=== PATIENT | female | born 1965 | race Caucasian/White ===

== ENCOUNTER 2019-11-04 08:02 | Day surgery (SDC) | payer OTHER ==
[2019-11-04 08:10] LABS: Urine Appearance CLOUDY; Urine Bilirubin NEGATIVE (NEG); Urine Blood NEGATIVE (NEG); Urine Color YELLOW; Urine Glucose NEGATIVE (NEG); Urine Protein NEGATIVE (NEG); Urine Specific Gravity >=1.030 (1.005-1.030); Urine Urobilinogen 0.2 mg/dL (0.2-1.0)
[2019-11-04 08:10] LABS: Absolute Lymphocytes (CBC) 2.2 K/uL (0.7-4.9); Hematocrit 35.7 % (36.0-45.0); Lymphocytes % 25.9 % (15.3-44.8); MPV 8.3 fL (7.6-11.3); RBC Red Blood Cell Count 3.86 M/uL (3.86-4.86)
[2019-11-04] MEDS ORDERED: BACITRACIN 50000 UNIT VIAL ONE (08:20)
[2019-11-04] MEDS ORDERED: CEFAZOLIN SODIUM 1 GM/VIAL ONE (08:20)
[2019-11-04] MEDS ORDERED: LIDOCAINE 1% W/EPI 1:100,000 MDV 20 ML VIAL ONE (08:20)
[2019-11-04] MEDS ORDERED: GENTAMICIN SULF 80 MG/2ML INJ ONE (08:20)
[2019-11-04] MEDS ORDERED: Mastisol Adhesive Liq ONE (08:20)
[2019-11-04] MEDS ORDERED: NS 0.9% VIAL 40 ML ONE (08:20)
[2019-11-04] MEDS ORDERED: Ringers Lactate 1,000 ML IV ONE ×3 (08:20→08:37)
[2019-11-04] MEDS ORDERED: CEFAZOLIN/SWI 1gm 1 GM/10 ML SYR ONE (08:37)
--- NOTE | 2019-11-04 08:54 | RAD REPORT ---
EXAM DESCRIPTION: RAD - Chest Pa And Lat (2 Views) - 11/04/2019 8:02 am CLINICAL HISTORY: pre op Chest pain. COMPARISON: No comparisons FINDINGS: The lungs are clear. The heart is normal in size. No displaced fractures. IMPRESSION: No acute or concerning finding suspected.
[2019-11-04 09:01] LABS: Urine Microscopic Reflex ORDER UMIC
[2019-11-04 09:08] LABS: Urine RBC NONE SEEN /HPF (NONE SEEN)
[2019-11-04 09:09] LABS: Urine Bacteria >50 /HPF (<20); Urine Culture Reflex Order REFLEXED; Urine Mucus HEAVY /HPF (NONE SEEN)
[2019-11-04] MEDS ORDERED: SCOPOLAMINE HYDROBROMIDE PATCH TD ONE (09:16)
[2019-11-04] MEDS ORDERED: KETOROLAC 30 MG/ML INJ ONE ×2 (09:32→13:50)
[2019-11-04] MEDS ORDERED: dexAMETHasone 10 MG/ML VIAL ONE (09:32)
[2019-11-04] MEDS ORDERED: FENTANYL CITR 250 MCG/5 ML ONE (09:32)
[2019-11-04] MEDS ORDERED: propofoL 200 MG/20 ML VIAL IV ONE (09:32)
[2019-11-04] MEDS ORDERED: ROCURONIUM 50 MG/5 ML VIAL IV ONE (09:32)
[2019-11-04] MEDS ORDERED: MIDAZOLAM HCL 2 MG/2 ML INJ ONE (09:32)
[2019-11-04] MEDS ORDERED: LIDOCAINE 2% MPF 5 ML VIAL ONE (09:32)
[2019-11-04] MEDS ORDERED: ONDANSETRON 4 MG/2 ML VIAL ONE ×3 (09:33→14:35)
[2019-11-04] MEDS ORDERED: NS 0.9% VIAL 20 ML ONE (09:33)
[2019-11-04] MEDS ORDERED: VECURONIUM 10 MG/VIAL IV ONE ×2 (09:33→12:09)
[2019-11-04] MEDS ORDERED: LANO/MINERAL OIL/PETRO 3.5 GM ONE (09:38)
[2019-11-04] MEDS ORDERED: NEOSTIGMINE 1 MG/ML -5 ML ONE (13:50)
[2019-11-04] MEDS ORDERED: GLYCOPYRROLATE 0.2 MG/ML SYR ONE (13:50)
[2019-11-04] MEDS: HYDROMORPHONE HCL 1 MG/ML INJ ONE ×4 (14:21→14:36)
[2019-11-04 15:10] VITALS: TEMP 97.6
[2019-11-04] MEDS ORDERED: CODEINE 30MG/APAP 300MG TAB ONE (15:29)
[2019-11-04 15:57] VITALS: BP 110/56; O2SAT 98
--- NOTE | 2019-11-07 09:21 | OP ---
Surgeon: Praveen Tovar MD Wooden Tank Erector: Kaz. Preoperative Diagnosis: Breast descent, status post implants. Postoperative Diagnosis: Breast descent, status post implants. Procedure Performed: Explantation and lift. Anesthesia: General. Operative Note: After satisfactory induction of general anesthesia, the chest was prepped with DuraPrep and dry sterile drapes applied in the usual manner. A 45 mm template was used to outline the right and left areolas. Then, the transverse curvilinear incision was made. Intervening skin was de- epithelialized with dermabrader and EpiCut and a transverse incision was made. Flap was elevated and thinned to 1.2 cm and elevated towards the clavicle, sternum, and anterior axillary line. Both sides were done simultaneously. Then, the inferior incision was made, and at the 6 o'clock position, incision was made over the implants. Implants were removed from cephalad position. They were 250 cc and they weighed 254 g each. The patient then had conization performed after the inferior incision was made, and excess breast tissue was excised. On the right breast 46 g and the left breast 56 g, and then 2-0 PDS was used to creat the cone. Then, at the right breast 12 o'clock, 1:30, and 3 o'clock position, straps were elevated, and they were passed retropectoral and then prepectoral back to base of the cone and retropectoral prepectoral patch themselves at the base of the cone with 2-0 PDS suture. This was done from 12 o'clock and 1;30 straps. The 3 o'clock strap was sewn over the sternum at 3 o'clock position with 2-0 Ethibond. The left side was done in a mirror image manner and the patient was sat up. Dog ears medially and laterally were marked out. The patient was placed supine. Dog ears were excised. Wound was irrigated with antibiotic solution and then closed in layers with 3-0 Vicryl subcuticular 3-0 PDS running from lateral to medial and medial to lateral, tied in the vertical meridian of the breast. A 10 TOSHIA had been brought out and sewn in place with 2-0 silk. The left side was done identical and then the patient was sat up. Site for new nipple-areolar complex was marked out, tissue cored out with a 45 mm template, and then nipple areolar complex was delivered and sewn with interrupted 4-0 PDS followed by 4-0 PDS running subcuticular. Dressings consisted of tincture of benzoin, Steri-Strips, fluffs, and Caden wrap. The patient tolerated the procedure well and returned to Recovery. SLADE/MANUEL Voice ID: [id number] Report ID: [id number] YANNI
== END 2019-11-04 16:03 | disposition home or self-care (01) ==
LOC: OR 08:02
PROVIDERS: ATTEND Specialist
PROC: 0HPT0JZ Removal of Synthetic Substitute from Right Breast, Open Approach (ICD-10-PCS; 2019-11-04)
PROC: 0H0V0ZZ Alteration of Bilateral Breast, Open Approach (ICD-10-PCS; 2019-11-04)
PROC: 0HPU0JZ Removal of Synthetic Substitute from Left Breast, Open Approach (ICD-10-PCS; principal; 2019-11-04 09:00)
DX: N64.81 Ptosis of breast (principal); Z45.812 Encounter for adjustment or removal of left breast implant; Z45.811 Encounter for adjustment or removal of right breast implant
CPT/HCPCS: 93005; 85025; 87086; 36415; 88305; 71046; 19328; 19316; J2704; J1580; J2250; J3010; J1100; J1170 ×2; J2710; J0690 ×2; J7120 ×3; J2405 ×3; 81003; 81015; 87088

== ENCOUNTER 2019-11-18 14:52 | Inpatient (IN) | payer OTHER ==
[2019-11-18] MEDS ORDERED: CEFEPIME/SWI 2gm 2 GM/20 ML SYR IVP ONE (16:00)
[2019-11-18] MEDS ORDERED: VANCOMYCIN/NS 1 gm 1 GM/250 ML BAG IV ONE (16:00)
[2019-11-18 16:26] LABS: Absolute Lymphocytes (CBC) 2.4 K/uL (0.7-4.9); Basophils % 0.7 % (0-1.3); Hematocrit 30.2 % (36.0-45.0); Lymphocytes % 16.8 % (15.3-44.8); RBC Red Blood Cell Count 3.36 M/uL (3.86-4.86)
[2019-11-18 16:38] LABS: Protime INR 1.1
[2019-11-18 16:44] LABS: ALT/SGPT 25 U/L (12-78); AST/SGOT 16 U/L (15-37); Albumin 3.4 g/dL (3.4-5.0); Alkaline Phosphatase 131 U/L (45-117); BUN Blood Urea Nitrogen 11 mg/dL (7-18); Bicarbonate 29 mmol/L (21-32); Bilirubin Direct < 0.1 mg/dL (0-0.2); Bilirubin Total 0.2 mg/dL (0.2-1.0); Creatine Phosphokinase 35 U/L (26-192); Glucose Level 88 mg/dL (74-106); Potassium 3.6 mmol/L (3.5-5.1); Protein, Total 9.2 g/dL (6.4-8.2); Sodium Level 137 mmol/L (136-145)
--- NOTE | 2019-11-18 17:40 | RAD REPORT ---
EXAM DESCRIPTION: US - BREAST/AXILLA, COMPLETE - 11/18/2019 5:26 pm CLINICAL HISTORY: Breast pain and tenderness, recent implant removal and breast lift procedure COMPARISON: None FINDINGS: Bilateral breast sonographic evaluation performed of the retroareolar regions and all 4 qu adrants. Subcutaneous edema changes are present. In the 12 o'clock right breast 4 cm from the nipple a 3-4 jose timeter elliptical-shaped fluid collection is present. This is anechoic to minimally hypoechoic. No t hickened rim or rind. In the 3 o'clock right breast 5 cm from the nipple an 18 millimeter oval anecho ic to minimally hypoechoic focus is present. A similar 11 mm hypoechoic focus is present 6 o'clock ri ght breast. A thin crescent-shaped 3.7 centimeter anechoic collection is present in the 12 o'clock left breast. T he 3 o'clock left breast shows a 5-6 mm a amorphous hypoechoic collection. IMPRESSION: Multiple bilateral breast anechoic to minimally hypoechoic collections are present. Thes e are believed to be postoperative seroma is or benign reactive fluid collections secondary to the re cent surgery. No abscess or drainable fluid collection identifiable.
--- NOTE | 2019-11-18 17:48 | ER ---
Nurse's Notes [facility] Name: Vee Sierra Age: 53 yrs Sex: Female : 1965 Arrival Date: 11/18/2019 Time: 14:57 Bed 5 Private MD: Diagnosis: Cellulitis of chest wall;Unspecified open wound of left breast;Unspecified open wound of right breast Presentation: 11/17 15:04 Chief complaint: Patient states: Had breast implants removed with a breast lift 2 weeks ll1 ago. Having problems with the skin and nipple tissue since. Has been seeing Dr. Tovar for this. States they debrided skin on Friday. Breasts are swollen, warm to touch, painful. No fever at home. Coronavirus screen: Client denies travel out of the [place] in the last 14 days. At this time, the client does not indicate any symptoms associated with coronavirus-19. Ebola Screen: Patient denies travel to an Ebola-affected area in the 21 days before illness onset. Initial Sepsis Screen: Does the patient meet any 2 criteria? HR > 90 bpm. Risk Assessment: Do you want to hurt yourself or someone else? Patient reports no desire to harm self or others. Onset of symptoms was November 06, 2019. 15:04 Method Of Arrival: Ambulatory ll1 15:04 Acuity: MARGOT 3 ll1 19:42 Initial Sepsis Screen: Does the patient have a suspected source of infection? Yes: Skin rv breakdown/wound. 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 - Social history:: Smoking status: Patient denies any tobacco usage or history of. Screenin:11 Abuse screen: Denies threats or abuse. Denies injuries from another. Nutritional jr10 screening: No deficits noted. Tuberculosis screening: No symptoms or risk factors identified. Fall Risk IV access (20 points). Assessment: 16:11 General: Appears in no apparent distress. Behavior is calm, cooperative, appropriate jr10 for age. Pain: Complains of pain in right breast and left breast Pain does not radiate. Neuro: No deficits noted. Level of Consciousness is awake, alert, obeys commands, Oriented to Appropriate for age. Cardiovascular: No deficits noted. Denies chest pain, Patient's skin is warm and dry. Pulses are all present. Edema is absent. Rhythm is sinus rhythm. Respiratory: No deficits noted. Airway is patent Respiratory effort is even, unlabored, Respiratory pattern is regular, symmetrical, Breath sounds are clear bilaterally. Denies shortness of breath. GI: No deficits noted. No signs and/or symptoms were reported involving the gastrointestinal system. : No deficits noted. No signs and/or symptoms were reported regarding the genitourinary system. EENT: No deficits noted. No signs and/or symptoms were reported regarding the EENT system. Derm: Wound noted right nipple and left nipple Wound is vickey areolas raw in appearance with purulent d/c noted, no discharge noted from actual nipple; right nipple is pink in appearance; left nipple is pale in appearance; pt reports removal of vickey breast implants with a decrease in areola size 2 weeks ago; started on 2 rounds of oral abx and had wound debridement yesterday Reports increased pain. Musculoskeletal: No deficits noted. 18:00 Reassessment: Patient and/or family updated on plan of care and expected duration. Pain jr10 level reassessed. Patient is alert, oriented x 3, equal unlabored respirations, skin warm/dry/pink. 19:34 General: Appears comfortable, Behavior is calm, cooperative. Pain: Complains of pain in rv chest. 19:40 Neuro: Level of Consciousness is awake, alert, obeys commands, Oriented to person, rv place, time, situation. Respiratory: Airway is patent Respiratory effort is even, unlabored, Breath sounds are clear bilaterally. Vital Signs: 15:04 BP 124 / 71; Pulse 107; Resp 18; Temp 98.8; Pulse Ox 100% ; Pain 4/10; ll1 16:24 BP 113 / 77; Pulse 107; Resp 18; Pulse Ox 100% on R/A; jr10 17:45 BP 130 / 73; Pulse 104; Resp 20; Pulse Ox 100% on R/A; jr10 17:45 BP 125 / 81; Pulse 105; Resp 20; Pulse Ox 100% on R/A; jr10 19:00 BP 117 / 79; Pulse 105; Resp 17; Temp 98.4(O); Pulse Ox 100% ; rv ED Course: 14:57 Patient arrived in ED. mr 15:06 Triage completed. ll1 15:07 Arm band placed on Patient placed in an exam room, on a stretcher. ll1 15:09 Brain Roldan PA is PHCP. jr8 15:09 Tom Pa MD is Attending Physician. jr8 15:28 Natalie Sidhu, RN is Primary Nurse. jr10 16:11 Patient has correct armband on for positive identification. Placed in gown. Bed in low jr10 position. Call light in reach. Side rails up X2. supervisor of research on. Pulse ox on. NIBP on. 16:11 Inserted saline lock: 20 gauge in right forearm, using aseptic technique. IV is patent, jr10 is intact, with good blood return, Flushed. 16:23 No provider procedures requiring assistance completed. jr10 16:30 EKG done, by ED staff, reviewed by Brani DAUGHERTY. dh3 17:26 BREAST/AXILLA, COMPLETE In Process Unspecified. EDMS 17:47 Kevin Mendoza DO is Hospitalizing Provider. jr8 19:42 IV is patent, with fluids infusing freely, Patient admitted, IV remains in place. rv Administered Medications: 16:38 Drug: Cefepime 2 grams Route: IVPB; Rate: 200 ml/hr; Infused Over: 30 mins; Site: right jr10 forearm; 17:53 Follow up: Response: No adverse reaction; IV Status: Completed infusion jr10 17:54 Drug: vancoMYCIN 1 grams Route: IVPB; Infused Over: 2 hrs; Site: right forearm; jr10 19:42 Follow up: IV Status: Completed infusion; IV Intake: 250ml rv 18:08 Drug: morphine 4 mg Route: IVP; Site: right forearm; jr10 18:25 Follow up: Response: No adverse reaction jr10 18:08 Drug: Zofran (Ondansetron) 4 mg Route: IVP; Site: right forearm; jr10 18:25 Follow up: Response: No adverse reaction jr10 Intake: 19:42 IV: 250ml; Total: 250ml. rv Outcome: 17:48 Decision to Hospitalize by Provider. jr8 19:41 Admitted to Med/surg accompanied by tech, via wheelchair, room 204, with chart, Report rv called to BURT GOODWIN 19:41 Condition: good 19:41 Instructed on the need for admit. 19:43 Patient left the ED. rv Signatures: Dispatcher [employer] TITOPatricia FarrarBrain PA PA jr8 Jacqueline Cespedes 3 Brendon Guzman RN RN rv Criss Mendoza RN RN ll1 Natalie Sidhu RN RN jr10 Corrections: (The following items were deleted from the chart) 15:08 15:04 Chief complaint: Patient states: Had breast implants removed and had a breast ll1 lift 2 weeks ago. Having problems with the skin and nipple tissue since. Has been seeing Dr. Tovar for this. States they debrided skin on Friday. Breasts are swollen, warm to touch, painful. No fever at home. ll1
--- NOTE | 2019-11-18 17:48 | EDPHYS ---
Physician Documentation [facility] Name: Vee Sierra Age: 53 yrs Sex: Female : 1965 Arrival Date: 11/18/2019 Time: 14:57 Bed 5 Private MD: ED Physician Tom Pa HPI: 11/17 16:08 This 53 yrs old Female presents to ER via Ambulatory with complaints of Post jr8 surgical problem. 16:20 Patient stated that she had her implants taken out about 2 weeks ago and had a breast jr8 lift. Stated that she has had erythema and discharge around areolas since then. Was told to come to ED for further evaluation after a few days of out patient treatment and debridement without decrease in symptoms . Severity of symptoms: At their worst the symptoms were moderate in the emergency department the symptoms are unchanged. The patient has not experienced similar symptoms in the past. The patient has been recently seen by a physician:. 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 - Social history:: Smoking status: Patient denies any tobacco usage or history of. ROS: 16:20 Eyes: Negative for injury, pain, redness, and discharge, ENT: Negative for injury, jr8 pain, and discharge, Neck: Negative for injury, pain, and swelling, Cardiovascular: Negative for chest pain, palpitations, and edema, Respiratory: Negative for shortness of breath, cough, wheezing, and pleuritic chest pain, Abdomen/GI: Negative for abdominal pain, nausea, vomiting, diarrhea, and constipation, Back: Negative for injury and pain, MS/Extremity: Negative for injury and deformity, Neuro: Negative for headache, weakness, numbness, tingling, and seizure. 16:20 Skin: Positive for erythema, swelling, of the chest. Exam: 16:20 Eyes: Pupils equal round and reactive to light, extra-ocular motions intact. Lids and jr8 lashes normal. Conjunctiva and sclera are non-icteric and not injected. Cornea within normal limits. Periorbital areas with no swelling, redness, or edema. ENT: Nares patent. No nasal discharge, no septal abnormalities noted. Tympanic membranes are normal and external auditory canals are clear. Oropharynx with no redness, swelling, or masses, exudates, or evidence of obstruction, uvula midline. Mucous membranes moist. Neck: Trachea midline, no thyromegaly or masses palpated, and no cervical lymphadenopathy. Supple, full range of motion without nuchal rigidity, or vertebral point tenderness. No Meningismus. Cardiovascular: Tachycardia with a normal S1 and S2. No gallops, murmurs, or rubs. Normal PMI, no JVD. No pulse deficits. Respiratory: Lungs have equal breath sounds bilaterally, clear to auscultation and percussion. No rales, rhonchi or wheezes noted. No increased work of breathing, no retractions or nasal flaring. Abdomen/GI: Soft, non-tender, with normal bowel sounds. No distension or tympany. No guarding or rebound. No evidence of tenderness throughout. Back: No spinal tenderness. No costovertebral tenderness. Full range of motion. Skin: Warm, dry with normal turgor. Normal color with no rashes, no lesions, and no evidence of cellulitis. MS/ Extremity: Pulses equal, no cyanosis. Neurovascular intact. Full, normal range of motion. Neuro: Awake and alert, GCS 15, oriented to person, place, time, and situation. Cranial nerves II-XII grossly intact. Motor strength 5/5 in all extremities. Sensory grossly intact. Cerebellar exam normal. Normal gait. 16:20 Chest/axilla: Breasts: Patient has bilateral breast changes. Surgical incisions noted to inferior breasts without discharge or erythema. Patient has eschar with discharge noted bilaterally to the areolas. Both breasts are firm and tender to palpation . Vital Signs: 15:04 BP 124 / 71; Pulse 107; Resp 18; Temp 98.8; Pulse Ox 100% ; Pain 4/10; ll1 16:24 BP 113 / 77; Pulse 107; Resp 18; Pulse Ox 100% on R/A; jr10 17:45 BP 130 / 73; Pulse 104; Resp 20; Pulse Ox 100% on R/A; jr10 17:45 BP 125 / 81; Pulse 105; Resp 20; Pulse Ox 100% on R/A; jr10 19:00 BP 117 / 79; Pulse 105; Resp 17; Temp 98.4(O); Pulse Ox 100% ; rv MDM: 15:09 Patient medically screened. [facility] 17:13 Data reviewed: vital signs, nurses notes, lab test result(s), radiologic studies, [facility] ultrasound. Data interpreted: Pulse oximetry: on room air is 100 %. Interpretation: normal. Counseling: I had a detailed discussion with the patient and/or guardian regarding: the historical points, exam findings, and any diagnostic results supporting the discharge/admit diagnosis, lab results, radiology results, the need for further work-up and treatment in the hospital. ED course: Spoke with Dr. Tovar who will see patient. Most likely will go to surgery in the AM. 11/17 15:10 Order name: Sed Rate [facility] 11/17 15:10 Order name: C-Reactive Protein; Complete Time: 17:05 [facility] 11/17 15:10 Order name: Basic Metabolic Panel; Complete Time: 17:05 [facility] 11/17 15:10 Order name: Blood Culture Adult (2) [facility] 11/17 15:10 Order name: CBC with Diff; Complete Time: 17:05 [facility] 11/17 15:10 Order name: CPK; Complete Time: 17:05 [facility] 11/17 15:10 Order name: Lactate; Complete Time: 17:05 [facility] 11/17 15:10 Order name: LFT's; Complete Time: 17:05 [facility] 11/17 15:10 Order name: Procalcitonin; Complete Time: 17:12 [facility] 11/17 15:10 Order name: Protime (+inr); Complete Time: 17:05 [facility] 11/17 15:10 Order name: Ptt, Activated; Complete Time: 17:05 [facility] 11/17 15:11 Order name: Sedimentation Rate, Westergren; Complete Time: 17:05 [facility] 11/17 16:02 Order name: BREAST/AXILLA, COMPLETE; Complete Time: 17:46 [facility] 11/17 15:10 Order name: Cardiac monitoring; Complete Time: 16:11 [facility] 11/17 15:10 Order name: EKG - Nurse/Tech; Complete Time: 17:03 [facility] 11/17 15:10 Order name: IV Saline Lock - Large Bore; Complete Time: 16:11 [facility] 11/17 15:11 Order name: Labs collected and sent; Complete Time: 16:11 [facility] 11/17 15:11 Order name: O2 Per Protocol; Complete Time: 15:29 8 11/17 15:11 Order name: O2 Sat Monitoring; Complete Time: 15:29 11/17 18:31 Order name: CONS Physician Consult EDMS Administered Medications: 16:38 Drug: Cefepime 2 grams Route: IVPB; Rate: 200 ml/hr; Infused Over: 30 mins; Site: right jr10 forearm; 17:53 Follow up: Response: No adverse reaction; IV Status: Completed infusion jr10 17:54 Drug: vancoMYCIN 1 grams Route: IVPB; Infused Over: 2 hrs; Site: right forearm; jr10 19:42 Follow up: IV Status: Completed infusion; IV Intake: 250ml rv 18:08 Drug: morphine 4 mg Route: IVP; Site: right forearm; jr10 18:25 Follow up: Response: No adverse reaction jr10 18:08 Drug: Zofran (Ondansetron) 4 mg Route: IVP; Site: right forearm; jr10 18:25 Follow up: Response: No adverse reaction [facility] Disposition: 11/18 14:26 Co-signature as Attending Physician, Tom Pa MD I agree with the assessment and kdr plan of care. Disposition: 11/18/19 17:48 Hospitalization ordered by Kevin Mendoza for Inpatient Admission. Preliminary diagnosis are Cellulitis of chest wall, Unspecified open wound of left breast, Unspecified open wound of right breast. - Bed requested for Telemetry/MedSurg (Inpatient). - Status is Inpatient Admission. rv - Condition is Stable. - Problem is new. - Symptoms have improved. Signatures: Dispatcher [employer] EDDC Tom Pa MD MD kdr Martinez, Eric em1 Brain Roldan PA PA jr8 Brendon Guzman RN RN rv Criss Mendoza RN RN ll1 Natalie Sidhu RN RN jr10 Corrections: (The following items were deleted from the chart) 11/17 17:14 15:10 Accucheck ordered. 8 18:59 17:48 Hospitalization Ordered by Kevin Mendoza DO for Inpatient Admission. Preliminary em1 diagnosis is Cellulitis of chest wall; Unspecified open wound of left breast; Unspecified open wound of right breast. Bed requested for Telemetry/MedSurg (Inpatient). Status is Inpatient Admission. Condition is Stable. Problem is new. Symptoms have improved. jr8 19:43 18:59 11/18/2019 17:48 Hospitalization Ordered by Kevin Mendoza DO for Inpatient rv Admission. Preliminary diagnosis is Cellulitis of chest wall; Unspecified open wound of left breast; Unspecified open wound of right breast. Bed requested for Telemetry/MedSurg (Inpatient). Status is Inpatient Admission. Condition is Stable. Problem is new. Symptoms have improved. em1
[2019-11-18] MEDS ORDERED: MORPHINE 4 MG/ML SYR ONE (18:02)
[2019-11-18] MEDS ORDERED: ONDANSETRON 4 MG/2 ML VIAL ONE (18:02)
--- NOTE | 2019-11-18 18:59 | P.HP ---
Certification for Inpatient Patient admitted to: Inpatient With expected LOS: >2 Midnights Patient will require the following post-hospital care: None Practitioner: I am a practitioner with admitting privileges, knowledge of patient current condition, hospital course, and medical plan of care. Services: Services provided to patient in accordance with Admission requirements found in Title 42 Section 412.3 of the Code of Federal Regulations <Angel Valles - Last Filed: 11/18/19 18:54> Patient admitted to: Inpatient <Kevin Mendoza - Last Filed: 11/19/19 15:05> Patient History Date of Service: 11/18/19 Primary Care Provider: Plastic surgeryMargarita Reason for admission: Breast cellulitis History of Present Illness: 53-year-old female with history of mitral valve prolapse and hypothyroidism presents the emergency department for complaint of cellulitis of bilateral breasts. Patient had initial breast augmentation in 2008 but due to the implants being placed over muscle tissue impacting ability to obtain accurate mammogram patient wished to have implants removed. On November 03 patient had her breast implants removed and had a breast lift performed. Since then she has had problems with both of her areolas with necrosis. Patient also noted to have some surrounding cellulitis. Patient reports that she has been seen her plastic surgeon daily but over the course of the last day or so she has been becoming more tired and noticed her heart was pounding. Patient presented to the emergency department for further evaluation and management. During her evaluation patient was found to have elevated white blood cell count at 14 and elevated C-reactive protein. Case was discussed with plastic surgeon who recommends admission for patient with debridement tomorrow morning. When I saw the patient in the emergency department she was awake, alert, oriented x3. Patient was in no distress, patient has remained afebrile but was tachycardic around 110 during my evaluation. Patient does like for sepsis but does not appear to have severe sepsis at this point time. Patient be admitted for further evaluation and management. - Past Medical/Surgical History Diabetic: No -: Mitral valve prolapse -: Hypothyroidism -: Appendectomy -: Tubal ligation -: Hysterectomy -: Liposuction -: Breast augmentation followed by implant removal -: Breast lift -: Back surgery x2 -: Duarte loyd Psychosocial/ Personal History: Patient lives at home with her family - Family History Father -: Heart disease, Diabetes - Social History Alcohol use: Yes CD- Drugs: No Caffeine use: No Place of Residence: Home <Angel Valles - Last Filed: 11/18/19 18:54> Date of Service: 11/19/19 Home medications list reviewed: Yes - Social History Smoking Status: Unknown if ever smoked <Kevin Mendoza - Last Filed: 11/19/19 15:05> Allergies No Known Allergies Allergy (Verified 11/04/19 07:23) Home Medications: Furosemide 20 mg PO DAILY 11/04/19 Thyroid,Pork [Nature-Throid] 97.5 mg PO DAILY 11/04/19 clonazePAM [Clonazepam] 1 mg PO BID 11/04/19 Acyclovir [Zovirax] 1,800 mg PO DAILY PRN 11/18/19 Bromelains [Bromelain] 1,000 mg PO DAILY 11/18/19 Cholecalciferol (Vitamin D3) [Vitamin D3] 10,000 unit PO DAILY 11/18/19 Clindamycin HCl 150 mg PO Q6HR 11/18/19 Magnesium Oxide [Magnesium] 800 mg PO BID 11/18/19 Silver Sulfadiazine [Silvadene] 50 gm TP BID 11/18/19 Zinc 50 mg PO DAILY 11/18/19 Review of Systems 10-point ROS is otherwise unremarkable Integumentary: As per HPI <Angel Valles - Last Filed: 11/18/19 18:54> Physical Examination - Physical Exam General: Alert, In no apparent distress, Oriented x3 HEENT: Atraumatic, Normocephalic, PERRLA, Mucous membr. moist/pink Neck: Supple Respiratory: Clear to auscultation bilaterally, Normal air movement Cardiovascular: No edema, Normal S1 S2 Capillary refill: <2 Seconds Gastrointestinal: Soft and benign Musculoskeletal: No swelling, No contractures Integumentary: Tenderness/swelling, Erythema (Erythema surrounding bilateral Arieola, Arieola appeared to be necrosed), Warmth Neurological: Normal speech, Normal strength at 5/5 x4 extr, Normal tone Lymphatics: No axilla or inguinal lymphadenopathy - Studies Laboratory Data (last 24 hrs) 11/18/19 15:58: PT 13.0 H, INR 1.10, APTT 37.5 H 11/18/19 15:58: Sodium 137, Potassium 3.6, BUN 11, Creatinine 0.84, Glucose 88, Total Bilirubin 0.2, AST 16, ALT 25, Alkaline Phosphatase 131 H 11/18/19 15:58: WBC 14.4 H, Hgb 9.9 L, Hct 30.2 L, Plt Count 891 H <Angel Valles - Last Filed: 11/18/19 18:54> - Studies Laboratory Data (last 24 hrs) 11/18/19 15:58: PT 13.0 H, INR 1.10, APTT 37.5 H 11/18/19 15:58: Sodium 137, Potassium 3.6, BUN 11, Creatinine 0.84, Glucose 88, Total Bilirubin 0.2, AST 16, ALT 25, Alkaline Phosphatase 131 H 11/18/19 15:58: WBC 14.4 H, Hgb 9.9 L, Hct 30.2 L, Plt Count 891 H <Kevin Mendoza - Last Filed: 11/19/19 15:05> Assessment and Plan - Plan Assessment Cellulitis of bilateral breast S/P surgical removal of the implants and breast lift Hypothyroidism Mitral valve prolapse Anxiety Plan Cellulitis of bilateral breast S/P surgical removal of the implants and breast lift: Blood cultures obtained in the emergency department, plastic surgery has been consulted and plan is for debridement tomorrow morning. Patient NPO after midnight, DVT prophylaxis held. Continue with broad-spectrum antibiotics at this time. Pain and nausea medications in place for as needed use. Anticipate clinical improvement in the next 48-72 hr. Hypothyroidism: Obtain and continue patient's home medications will obtain thyroid panel with morning labs. Mitral valve prolapse: Appears stable at this time. Will monitor patient on telemetry. Anxiety: Obtain and continue patient's home medications. Discharge Plan: Home Plan to discharge in: Greater than 2 days - Advance Directives Does patient have a Living Will: No Does patient have a Durable POA for Healthcare: No - Code Status/Comfort Care Code Status Assessed: Yes (Patient is full code) Critical Care: No Time Spent Managing Pts Care (In Minutes): 55 <Angel Valles - Last Filed: 11/18/19 18:54> - Plan Case reviewed with nurse practitioner. Agree with plan of care. Patient seen today. Please review notes for details. <Kevin Mendoza - Last Filed: 11/19/19 15:05>
[2019-11-18] MEDS ORDERED: ACETAMINOPHEN 500 MG TAB PO PRN (19:56)
[2019-11-18] MEDS ORDERED: VANCOMYCIN/NS 1 gm 1 GM/250 ML BAG IVPB SCH (19:56)
[2019-11-18] MEDS ORDERED: HYDROCODONE/APAP 7.5/325 MG TAB PO PRN (19:56)
[2019-11-18] MEDS ORDERED: MORPHINE 2 MG/ML SYR IV PRN (19:56)
[2019-11-18] MEDS ORDERED: ONDANSETRON 4 MG/2 ML VIAL IV PRN (19:56)
[2019-11-18 20:39] VITALS: BMI 29.3
[2019-11-18] MEDS: NA CHLORIDE 0.9% 1,000 ML IV SCH (20:47)
[2019-11-18] MEDS: clonazePAM 1 MG TAB PO PRN (23:48)
[2019-11-19] MEDS ORDERED: VANCOMYCIN 1 GM/VIAL ONE (04:36)
[2019-11-19] MEDS ORDERED: VANCOMYCIN 500 MG/VIAL ONE (04:37)
[2019-11-19] MEDS ORDERED: NA CHLORIDE 0.9% 250 ML ONE (04:42)
[2019-11-19] MEDS ORDERED: WATER FOR INJ,STERILE 20 ML ONE (04:43)
[2019-11-19] MEDS: VANCOMYCIN 1.25 GM in NA CHLORIDE 0.9% 250 ML IVPB SCH ×2 (04:46→15:00)
[2019-11-19] MEDS ORDERED: CEFEPIME 1 GM in NA CHLORIDE 0.9% 100 ML IV ONE (05:00)
[2019-11-19] MEDS ORDERED: CEFEPIME/SWI 1gm 10 ML IVP SCH (05:00)
[2019-11-19] MEDS ORDERED: CEFEPIME 1 GM/10 ML SYR IV SCH (05:00)
[2019-11-19 06:06] LABS: Absolute Lymphocytes (CBC) 3.1 K/uL (0.7-4.9); Basophils % 0.4 % (0-1.3); Hematocrit 26.4 % (36.0-45.0); Lymphocytes % 19.5 % (15.3-44.8); RBC Red Blood Cell Count 2.92 M/uL (3.86-4.86)
[2019-11-19 06:27] LABS: Thyroid Stimulating Hormone 3.81 uIU/mL (0.360-3.740)
[2019-11-19 07:45] LABS: Blood Morphology Comment NOT SEEN (NOT SEEN); Platelet Estimate INCR
[2019-11-19] MEDS: NA CHLORIDE 0.9% 1,000 ML IV SCH ×3 (07:58→14:20)
[2019-11-19 08:27] LABS: Absolute Lymphocytes (CBC) 2.2 K/uL (0.7-4.9); Basophils % 0.4 % (0-1.3); Hematocrit 23.7 % (36.0-45.0); Lymphocytes % 15.9 % (15.3-44.8); MPV 6.7 fL (7.6-11.3); RBC Red Blood Cell Count 2.64 M/uL (3.86-4.86)
[2019-11-19 08:28] LABS: Protime INR 1.1
[2019-11-19 08:59] LABS: C-Reactive Protein 50.8 mg/L (<3.00)
--- NOTE | 2019-11-19 09:02 | P.CNS ---
Date of Consult: 11/19/19 Subjective: Patient is a 53 year old female who presents with weakness/fatigued and bilateral breast pain. Patient had breast augmentation performed in 2008 but due to the implants being placed over muscle tissue impacting ability to obtain accurate mammogram patient wished to have implants removed. On November 03 the patient had her breast implants removed and had a breast lift performed. Since then she has has noticed pain, erythema and warmth to both breast. Patient followed up with her surgeon daily for the first week and was using silvadene ointment daily and was on an oral antibiotic with little improvement. Patient found to have bilateral breast cellulitis which I have been consulted for. - Past Medical/Surgical History Diabetic: No -: Mitral valve prolapse -: Hypothyroidism -: Appendectomy -: Tubal ligation -: Hysterectomy -: Liposuction -: Breast augmentation followed by implant removal -: Breast lift -: Back surgery x2 -: Duarte loyd Psychosocial/ Personal History: Patient lives at home with her family - Family History Father -: Heart disease, Diabetes - Social History Alcohol use: Yes CD- Drugs: No Caffeine use: No Place of Residence: Home Allergies No Known Allergies Allergy (Verified 11/04/19 07:23) Active Medications Acetaminophen (Tylenol -Extra Strength) 500 mg PO Q4HP PRN PRN Reason: TEMP > 100' F Stop: 12/18/19 19:57 Hydrocodone Bitart/Acetaminophen ([place] 7.5/325 Mg) 1 tab PO Q6H PRN PRN Reason: Pain scale 5-7 (Moderate) Stop: 12/18/19 19:57 Last Admin: 11/18/19 20:46 Dose: 1 tab Documented by: Clonazepam (Klonopin) 1 mg PO BID PRN PRN Reason: ANXIETY Stop: 12/18/19 19:57 Last Admin: 11/18/19 23:48 Dose: 1 mg Documented by: Sodium Chloride (Ns 1000 Ml Ivbag) 1,000 mls @ 75 mls/hr IV .[id number] MARTÍNEZ Stop: 12/18/19 19:57 Last Admin: 11/19/19 07:58 Dose: 1,000 mls Documented by: Vancomycin HCl 1.25 gm/ Sodium (Chloride) 250 mls @ 150 mls/hr IVPB Q12H MARTÍNEZ Stop: 12/19/19 04:01 Last Admin: 11/19/19 04:46 Dose: 250 mls Documented by: Cefepime HCl (Maxipime 1 Gm/10 Ml Ivp) 10 mls @ 10 mls/min IVP Q12H [facility] Stop: 12/19/19 17:01 Morphine Sulfate (Morphine Sulfate) 2 mg IV Q4H PRN PRN Reason: Pain scale 5-7 (Moderate) Stop: 12/18/19 19:57 Ondansetron HCl (Zofran) 4 mg IV Q6HP PRN PRN Reason: NAUSEA / VOMITING Stop: 12/18/19 19:57 Sodium Chloride (Normal Saline Flush) 10 ml IV BID [facility] Stop: 12/18/19 21:01 Last Admin: 11/19/19 07:58 Dose: 10 ml Documented by: ROS: CV: Denies chest pain RESP: Denies shortness of breath : Denies dysuria GI: Denies nausea, reports some loose stool Skin: Reports pain, warmth and erythema to bilateral breast s/p removal of breast implants Objective: Temp Pulse Resp BP Pulse Ox 97.2 F 94 H 18 101/54 L 97 11/19/19 04:00 11/19/19 04:00 11/19/19 04:00 11/19/19 04:00 11/19/19 04:00 Labs: Na 137, K 4.0, BUN 13, Creat 0.83, WBC 13.7, Hgb 7.9, Hct 23.7, Plt 800 EXAM DESCRIPTION: US - BREAST/AXILLA, COMPLETE - 11/18/2019 5:26 pm CLINICAL HISTORY: Breast pain and tenderness, recent implant removal and breast lift procedure COMPARISON: None FINDINGS: Bilateral breast sonographic evaluation performed of the retroareolar regions and all 4 quadrants. Subcutaneous edema changes are present. In the 12 o'clock right breast 4 cm from the nipple a 3-4 centimeter elliptical-shaped fluid collection is present. This is anechoic to minimally hypoechoic. No thickened rim or rind. In the 3 o'clock right breast 5 cm from the nipple an 18 millimeter oval anechoic to minimally hypoechoic focus is present. A similar 11 mm hypoechoic focus is present 6 o'clock right breast. A thin crescent-shaped 3.7 centimeter anechoic collection is present in the 12 o'clock left breast. The 3 o'clock left breast shows a 5-6 mm a amorphous hypoechoic collection. IMPRESSION: Multiple bilateral breast anechoic to minimally hypoechoic collections are present. These are believed to be postoperative seroma is or benign reactive fluid collections secondary to the recent surgery. No abscess or drainable fluid collection identifiable. ROS: General: Awake, alert, oriented CV: S1,S2, regular RESP: Good breath sounds ABD: Nontender, bowel sounds present Skin: Bilateral areolas with necrotic tissue, meenu area with erythema. Assessment and plan: Leukocytosis Bilateral breast cellulitis, possible surgical intervention today, recommend to paint with betadine daily Blood cultures pending Maxipime and Vancomycin day 1, continue, will reevaluate after surgical intervention Patient will need a minimum of 2 weeks of antibiotics Will continue to monitor Thank you for consult Patient discussed with Dr. Armijo
[2019-11-19 09:18] LABS: Blood Morphology Comment NOT SEEN (NOT SEEN); Platelet Estimate INCR
--- NOTE | 2019-11-19 11:12 | EKG ---
Test Date: 2019-11-18 Test Time: 16:22:41 Police Artist: GREGORY MEASUREMENT RESULTS: Intervals: Rate: 98 OR: 140 QRSD: 82 QT: 336 QTc: 428 [place]: P: 36 OR: 140 QRS: 60 T: 40 INTERPRETIVE STATEMENTS: Normal sinus rhythm Normal ECG Compared to ECG 11/04/2019 07:33:34 No significant changes Electronically Signed On 11-19-19 11:10:20 CDT by Yoel Skelton
[2019-11-19] MEDS ORDERED: KETOROLAC 30 MG/ML INJ IV ONE (12:00)
[2019-11-19] MEDS ORDERED: propofoL 200 MG/20 ML VIAL IV ONE (12:44)
[2019-11-19] MEDS ORDERED: MIDAZOLAM HCL 2 MG/2 ML INJ ONE (12:44)
[2019-11-19] MEDS ORDERED: dexAMETHasone 10 MG/ML VIAL ONE (12:44)
[2019-11-19] MEDS ORDERED: ONDANSETRON 4 MG/2 ML VIAL ONE (12:44)
[2019-11-19] MEDS ORDERED: ROCURONIUM 50 MG/5 ML VIAL IV ONE (12:44)
[2019-11-19] MEDS ORDERED: LIDOCAINE 2% MPF 5 ML VIAL ONE (12:44)
[2019-11-19] MEDS: SILVER SULFADIAZINE 1% 50 GM TOP ONE ×2 (13:45→13:49)
[2019-11-19] MEDS ORDERED: KETOROLAC 30 MG/ML INJ ONE (13:47)
[2019-11-19] MEDS ORDERED: SODIUM HYPOCHLORITE 0.25% 473 ML TOP ONE (14:00)
[2019-11-19] MEDS ORDERED: NA CHLORIDE 0.9% 1,000 ML ONE (14:12)
[2019-11-19 15:02] LABS: Hematocrit 24.2 % (36.0-45.0)
--- NOTE | 2019-11-19 15:04 | P.PN ---
Subjective Date of Service: 11/19/19 Primary Care Provider: Plastic surgeryMargarita Chief Complaint: Breast cellulitis Subjective: Doing well Physical Examination - Vital Signs Temperature: 97.4 F Blood Pressure: 110/61 Pulse: 89 Respirations: 16 Pulse Ox (%): 98 - Physical Exam General: Alert, In no apparent distress, Cooperative HEENT: Atraumatic Neck: Supple Respiratory: Clear to auscultation bilaterally, Normal air movement Cardiovascular: Normal pulses, Regular rate/rhythm Gastrointestinal: Normal bowel sounds, No tenderness, No masses, No rebound, No guarding Integumentary: Other (Some necrotic areas to the area bolus of both breasts. Some dried areas. Mild erythema to the outer border. Node drainage of pus.) Neurological: Normal speech, Normal strength at 5/5 x4 extr, Normal tone, Normal affect - Studies Laboratory Data (last 24 hrs) 11/18/19 15:58: PT 13.0 H, INR 1.10, APTT 37.5 H 11/18/19 15:58: Sodium 137, Potassium 3.6, BUN 11, Creatinine 0.84, Glucose 88, Total Bilirubin 0.2, AST 16, ALT 25, Alkaline Phosphatase 131 H 11/18/19 15:58: WBC 14.4 H, Hgb 9.9 L, Hct 30.2 L, Plt Count 891 H Medications List Reviewed: Yes Assessment & Plan Discharge Plan: Home Plan to discharge in: Greater than 2 days Physician Review Additional Text: Assessment Cellulitis of bilateral breast S/P surgical removal of the implants and breast lift Anemia likely post operative due to recent liposuction with underlying iron deficiency with thrombocytosis likely related to above Hypothyroidism Mitral valve prolapse Anxiety Plan Cellulitis of bilateral breast S/P surgical removal of the implants and breast lift: Blood cultures obtained. Patient NPO for debridement by plastic surgery today. Continue IV antibiotic therapy. Will consult infectious disease for further recommendations. Await findings and recommendations from Plastic surgery. Continue to monitor closely. Anemia likely post operative due to recent liposuction with underlying iron deficiency with thrombocytosis likely related to above: Patient has iron deficiency. Case discussed with hematology. Will start IV iron. Thrombocytosis likely related to iron deficiency and above. Continue monitor closely. Maintain hemoglobin above 7.0. Patient may require transfusion if below 7.0. Hypothyroidism: Continue home medication Mitral valve prolapse: Stable at this time Anxiety: Continue home medication Time Spent Managing Pts Care (In Minutes): 55
[2019-11-19] MEDS: IRON SUCROSE 50 MG in NA CHLORIDE 0.9% 100 ML IV SCH (16:00)
[2019-11-19] MEDS: CEFEPIME/SWI 1gm 10 ML IVP SCH (16:00)
[2019-11-19] MEDS: MAGNESIUM OXIDE 800 MG PO SCH (21:00)
[2019-11-19] MEDS: clonazePAM 1 MG TAB PO PRN (21:12)
[2019-11-19] MEDS: CODEINE 30MG/APAP 300MG TAB PO PRN (23:29)
--- NOTE | 2019-11-20 00:49 | HP ---
Date of Admission: 11/18/2019 History Of Present Illness: The patient is a 53-year-old white female, who 15 days ago underwent explantation of prepectoral implants and breast lift. Her postop course was complicated by discoloration of the left areola, and right areola both. She was followed serially with examination as well as the debridement on Friday, 4 days ago. At that time, all went well. She is admitted now for wound care. The right breast areolar complex is appears to be deep dermis skin loss. Left breast is partial thickness for approximately 3/4 full-thickness loss with underlying necrotic tissue. The patient previous back surgery and hysterectomy. Social History: Does not smoke. Does not drink. Allergies: NO ALLERGIES. Medications: She is on thyroid and Lasix. Physical Examination: Vital Signs: She is 5 feet 4 inches, 170 pounds. Skin: The patient has what looks to be second-degree fritz of both areolas. This is a partial thickness loss with some black or dark brown discoloration, particularly in the left breast on the lower half. Assessment: Ischemia to the nipple-areolar complex, status post breast explant and lift. Plan: Debridement. SLADE/MANUEL Voice ID: [id number] YANNI
--- NOTE | 2019-11-20 01:23 | OP ---
Surgeon: Praveen Tovar MD Preoperative Diagnosis: Ischemia of right and left areola, status post breast explant and lift. Postoperative Diagnosis: Ischemia of right and left areola, status post breast explant and lift with partial flap necrosis on the left. Anesthesia: General. Description Of Procedure: After satisfactory induction of general anesthesia, chest was prepped with DuraPrep and dry sterile drapes applied in the usual manner. The right nipple-areolar complex approached first. A dermabrader was used to debride the partial-thickness skin loss from the areola. Excellent bleeding occurred. The wounds were washed with dilute Betadine solution. The same procedure was done on the left breast. However, from approximately the 6 o'clock to 9 o'clock position, there was more of a full-thickness loss. This was excised in underlying fat as well as was debrided. The wound was jet lavage irrigated and then this wound was then packed with 2 inch Chad soaked in half- strength Dakin. Dressing consisted of 4 x 4s and tape. The patient tolerated the procedure well and returned to Recovery. SLADE/MANUEL Voice ID: [id number] Report ID: [id number] YANNI
[2019-11-20] MEDS: NA CHLORIDE 0.9% 1,000 ML IV SCH ×2 (04:25→22:12)
[2019-11-20] MEDS: CODEINE 30MG/APAP 300MG TAB PO PRN ×3 (04:25→22:11)
[2019-11-20] MEDS: VANCOMYCIN 1.25 GM in NA CHLORIDE 0.9% 250 ML IVPB SCH ×2 (05:24→15:22)
[2019-11-20] MEDS: CEFEPIME/SWI 1gm 10 ML IVP SCH ×2 (05:25→16:13)
[2019-11-20 06:22] LABS: Potassium 4.4 mmol/L (3.5-5.1)
[2019-11-20 06:47] LABS: Absolute Lymphocytes (CBC) 1.5 K/uL (0.7-4.9); Basophils % 0.2 % (0-1.3); Hematocrit 22.8 % (36.0-45.0); MPV 7.3 fL (7.6-11.3); RBC Red Blood Cell Count 2.54 M/uL (3.86-4.86)
[2019-11-20 08:18] LABS: Absolute Lymphocytes (CBC) 1.7 K/uL (0.7-4.9); Basophils % 0.1 % (0-1.3); Lymphocytes % 10.2 % (15.3-44.8); MPV 7.1 fL (7.6-11.3); RBC Red Blood Cell Count 2.58 M/uL (3.86-4.86)
[2019-11-20] MEDS: IRON SUCROSE 50 MG in NA CHLORIDE 0.9% 100 ML IV SCH (08:49)
[2019-11-20] MEDS ORDERED: THYROID PORK 97.5 MG PO SCH (09:00)
[2019-11-20] MEDS: MAGNESIUM OXIDE 800 MG PO SCH (09:00)
[2019-11-20] MEDS ORDERED: BROMELAINS PO SCH (09:00)
[2019-11-20] MEDS ORDERED: HOME MED 1 EA UNK (Zinc [Zinc] 50 MG) PO SCH (09:00)
[2019-11-20] MEDS: HOME MED 1 EA UNK (Cholecalciferol (Vitamin D3) [Vitamin D3] 10,000 UNIT) PO SCH (09:00)
[2019-11-20] MEDS ORDERED: SOD FERRIC GLUC COMPLX/SUCROSE 125 MG in NA CHLORIDE 0.9% 100 ML IV SCH (09:00)
--- NOTE | 2019-11-20 09:19 | P.PN ---
Subjective Date of Service: 11/20/19 Primary Care Provider: Plastic surgeryMargarita Chief Complaint: Breast cellulitis Subjective: No new changes, Tolerating diet, C/O voiced (-mild purulent discharge from left breast wound dsg yesterday -anxious to go home) Physical Examination - Vital Signs Temperature: 98.2 F Blood Pressure: 112/78 Pulse: 97 Respirations: 18 Pulse Ox (%): 95 - Physical Exam General: Alert, In no apparent distress, Oriented x3 HEENT: Atraumatic, Normocephalic, PERRLA Neck: Supple, 2+ carotid pulse no bruit, JVD not distended Respiratory: Clear to auscultation bilaterally, Normal air movement Cardiovascular: No edema, Normal pulses, Regular rate/rhythm, Normal S1 S2 Gastrointestinal: Normal bowel sounds, Soft and benign, Non-distended Musculoskeletal: No clubbing, No swelling Integumentary: No rashes, No breakdown, Other (b/l surgical wounds over nipples, deep macerated and dsg packed left breast areaola area) Neurological: Normal gait, Normal speech, Normal strength at 5/5 x4 extr External genitalia: No edema, No lesions - Studies Medications List Reviewed: Yes Assessment & Plan - Problems (Diagnosis) (1) Wound, breast Current Visit: Yes Status: Acute (2) Nipple infection Current Visit: Yes Status: Acute Physician Review: Patient Assessed, Agree with Above Assessment and Plan Physician Review Additional Text: Assessment Cellulitis of bilateral breast S/P surgical removal of the implants and breast lift Anemia likely post operative due to recent liposuction with underlying iron deficiency with thrombocytosis likely related to above Hypothyroidism Mitral valve prolapse Anxiety Plan Cellulitis of bilateral breast S/P surgical removal of the implants and breast lift: s/p debridement now by Dr Tovar-Plasic surgery -still drainage and purulent discharge from left breast -c/w vanco and cefepime -follow ID and Plastic surgery -area examined and discussed with plastics today, clean right incisional area but still macerated left surgical area with purulent and slight bloody drainage given elevated wbc , plan for MRI breast to r/o necrosis tissue -since unable to do MRI breast this weekend , will do CT chest for now -follow Blood cultures Anemia likely post operative due to recent liposuction with underlying iron deficiency with thrombocytosis likely related to above: c/w IV iron. -will swithc to 500 mg venofer bolus doses x2 -first dose today # Thrombocytosis likely related to iron deficiency and above. Continue monitor closely. Maintain hemoglobin above 7.0. Hypothyroidism: Continue home medication Mitral valve prolapse: Stable at this time Anxiety: Continue home medication
[2019-11-20] MEDS ORDERED: NA CHLORIDE 0.9% IV ONE ×2 (10:00→12:00)
[2019-11-20] MEDS ORDERED: IRON SUCROSE IV ONE ×2 (10:00→12:00)
--- NOTE | 2019-11-20 11:17 | RAD REPORT ---
EXAM DESCRIPTION: CT - Thorax W/ Con CLINICAL HISTORY: Chest pain with breast infection. breast wounds, r/o necrosis COMPARISON: BREAST/AXILLA, COMPLETE dated 11/18/2019 FINDINGS: Postsurgical changes are present involving both breasts. In the left periareolar region a focal soft tissue wound is present measuring about 20 mm in transverse dimension and 4 mm deep. Mild fluid is seen tracking from this region of the breast medially tracking along medially thickened fasc ia. The most notable fluid collection in the region measures approximately 7 mm in thickness. Small s oft tissue air collections are present along the fascia planes as well as inferior to the left nipple tracking along the fascia. Postsurgical changes are also noted involving the right breast. No soft tissue air is seen on the rig ht. Mild linear subsegmental atelectasis is present in both lung bases. No focal infiltrate suspicious of pneumonia seen. Small hiatal hernia. All CT scans are performed using dose optimization technique as appropriate and may include automated exposure control or mA/KV adjustment according to patient size. IMPRESSION: Focal left periareolar soft tissue wound is present with fascial plane thickening and fl uid extending medially most compatible with soft tissue infection. Foci of air collections within the soft tissues of the breast medially as well as inferiorly raises suspicion for a necrotizing soft ti ssue infection.
[2019-11-20] MEDS: FUROSEMIDE 20 MG TABLET PO SCH (15:22)
[2019-11-20] MEDS: SILVER SULFADIAZINE 1% 50 GM TOP SCH (22:18)
[2019-11-20] MEDS: SODIUM HYPOCHLORITE 0.5% 473 ML TOP SCH (22:19)
[2019-11-20] MEDS: MAGNESIUM OXIDE 400 MG PO SCH (22:25)
[2019-11-20] MEDS: clonazePAM 1 MG TAB PO PRN (22:51)
[2019-11-21] MEDS: CODEINE 30MG/APAP 300MG TAB PO PRN ×2 (02:30→06:47)
[2019-11-21] MEDS: CEFEPIME/SWI 1gm 10 ML IVP SCH (04:28)
[2019-11-21] MEDS: VANCOMYCIN 1.25 GM in NA CHLORIDE 0.9% 250 ML IVPB SCH (04:28)
[2019-11-21 06:08] LABS: Absolute Lymphocytes (CBC) 3.5 K/uL (0.7-4.9); Basophils % 0.8 % (0-1.3); Hematocrit 21.7 % (36.0-45.0); Lymphocytes % 24.6 % (15.3-44.8); MPV 7.1 fL (7.6-11.3); RBC Red Blood Cell Count 2.37 M/uL (3.86-4.86)
[2019-11-21 06:15] LABS: Potassium 4.2 mmol/L (3.5-5.1)
[2019-11-21 08:07] VITALS: BP 114/68; TEMP 97.9
[2019-11-21] MEDS: FUROSEMIDE 20 MG TABLET PO SCH (08:34)
[2019-11-21] MEDS: SILVER SULFADIAZINE 1% 50 GM TOP SCH (08:39)
[2019-11-21] MEDS: MAGNESIUM OXIDE 400 MG PO SCH (08:39)
[2019-11-21] MEDS: SODIUM HYPOCHLORITE 0.5% 473 ML TOP SCH (08:40)
[2019-11-21] MEDS: HOME MED 1 EA UNK (Cholecalciferol (Vitamin D3) [Vitamin D3] 10,000 UNIT) PO SCH (08:40)
[2019-11-21] MEDS ORDERED: ZINC PO SCH ×3 (09:00)
[2019-11-21] MEDS ORDERED: BROMELAIN PO SCH (09:00)
--- NOTE | 2019-11-21 09:03 | P.DS ---
Admission Date: 11/18/19 Discharge Date: 11/21/19 Primary Care Provider: Plastic surgeryMargarita Disposition: ROUTINE DISCHARGE Discharge Condition: FAIR Reason for Admission: Breast cellulitis - Problems (1) Wound, breast Current Visit: Yes Status: Acute (2) Nipple infection Current Visit: Yes Status: Acute Brief History of Present Illness: History of Present Illness: 53-year-old female with history of mitral valve prolapse and hypothyroidism presents the emergency department for complaint of cellulitis of bilateral breasts. Patient had initial breast augmentation in 2008 but due to the implants being placed over muscle tissue impacting ability to obtain accurate mammogram patient wished to have implants removed. On November 03 patient had her breast implants removed and had a breast lift performed. Since then she has had problems with both of her areolas with necrosis. Patient also noted to have some surrounding cellulitis. Patient reports that she has been seen her plastic surgeon daily but over the course of the last day or so she has been becoming more tired and noticed her heart was pounding. Patient presented to the emergency department for further evaluation and management. During her e valuation patient was found to have elevated white blood cell count at 14 and elevated C-reactive protein. Case was discussed with plastic surgeon who recommends admission for patient with debridement tomorrow morning. When I saw the patient in the emergency department she was awake, alert, oriented x3. Patient was in no distress, patient has remained afebrile but was tachycardic around 110 during my evaluation. Patient does like for sepsis but does not appear to have severe sepsis at this point time. Patient be admitted for further evaluation and management. Hospital Course: Patient was admitted for persistent bilateral areola cellulitis post breast explant, she was evaluated by Plastic surgery-Dr. Reeves on day , taking to the OR and has debridement of the wound done. Blood loss was CK O2. Left areola wound was packed and dressing changes with dark in solutions with done daily. Patient had a CT scan done-shows fluid with necrotizing tissue in the area. Surgery decision to continue or dressing change and follow up with patient in clinic in 3 days for re-evaluation obtained. Id was consulted and initially started patient on vancomycin and cefepime but at discharge with discussion with decision to do clindamycin and Levaquin for now and return to the ER if worsening discharge or erythema or new fever started Patient was discharged with Tylenol back 3 prescribed by surgery. She was also noted with anemia with hemoglobin down to 7.1. She was given IV iron loading doses and will be started on p.o. iron tabs Vital Signs/Physical Exam: Temp Pulse Resp BP Pulse Ox 97.9 F 78 17 114/68 99 11/21/19 08:00 11/21/19 08:34 11/21/19 08:00 11/21/19 08:34 11/21/19 08:00 General: Alert, In no apparent distress, Oriented x3 HEENT: Atraumatic, Normocephalic Neck: 2+ carotid pulse no bruit, JVD not distended Respiratory: Clear to auscultation bilaterally, Normal air movement Cardiovascular: Normal pulses, Regular rate/rhythm, Abnormal S3 Gastrointestinal: Normal bowel sounds, Soft and benign, Non-distended Musculoskeletal: No clubbing, No swelling Integumentary: Skin breakdown (b/l areaola area wound , packed and dressed) Neurological: Normal speech, Normal strength at 5/5 x4 extr, Normal tone Laboratory Data at Discharge: WBC 14.3 K/uL (4.3-10.9) H D 11/21/19 05:40 Hgb 7.1 g/dL (12.0-15.0) L* 11/21/19 05:40 Hct 21.7 % (36.0-45.0) L 11/21/19 05:40 Plt Count 786 K/uL (152-406) H 11/21/19 05:40 PT 12.9 SECONDS (9.5-12.5) H 11/19/19 08:08 INR 1.10 11/19/19 08:08 APTT 33.7 SECONDS (24.3-36.9) 11/19/19 08:08 Sodium 142 mmol/L (136-145) 11/21/19 05:40 Potassium 4.2 mmol/L (3.5-5.1) 11/21/19 05:40 BUN 15 mg/dL (7-18) 11/21/19 05:40 Creatinine 0.78 mg/dL (0.55-1.3) 11/21/19 05:40 Glucose 88 mg/dL (74-106) 11/21/19 05:40 Total Bilirubin 0.2 mg/dL (0.2-1.0) 11/18/19 15:58 AST 16 U/L (15-37) 11/18/19 15:58 ALT 25 U/L (12-78) 11/18/19 15:58 Alkaline Phosphatase 131 U/L (45-117) H 11/18/19 15:58 Home Medications: Furosemide 20 mg PO DAILY 11/04/19 Thyroid,Pork [Nature-Throid] 97.5 mg PO DAILY 11/04/19 clonazePAM [Clonazepam] 1 mg PO BID 11/04/19 Acyclovir [Zovirax] 1,800 mg PO DAILY PRN 11/18/19 Bromelains [Bromelain] 1,000 mg PO DAILY 11/18/19 Cholecalciferol (Vitamin D3) [Vitamin D3] 10,000 unit PO DAILY 11/18/19 Clindamycin HCl 150 mg PO Q6HR 11/18/19 Magnesium Oxide [Magnesium] 800 mg PO BID 11/18/19 Zinc 50 mg PO DAILY 11/18/19 Clindamycin HCl 150 mg PO Q6HP #24 capsule 11/21/19 Levofloxacin [Levaquin] 500 mg PO DAILY #7 tablet 11/21/19 New Medications: Clindamycin HCl 150 mg PO Q6HP #24 capsule Levofloxacin [Levaquin] 500 mg PO DAILY #7 tablet Patient Discharge Instructions: Return to the emergency room if any new fever, or worsening rash or discharge from the wound site Diet: Regular Activity: wound dressing as ordered Time spent managing pt's care (in minutes): 35
[2019-11-21 10:11] VITALS: O2SAT 99
--- NOTE | 2019-11-22 08:49 | DS ---
Date of Discharge: 11/21/2019 The patient is afebrile. The pain only occurred with the dressing changes on the left nipple areolar complex being packed with half-strength Dakin's. The right nipple-areolar complex is picking up. She has silvadene cream and she will be discharged home per the primary care doctor. Return to my office 2 days from now on Friday at 9 o'clock at the [facility] office. She will have Tylenol No. 3 for pain and she will use her Silvadene cream on the right nipple- areolar complex and half strength on the left. Her white count dropped to 14,000 from 16,000. SLADE/MANUEL Voice ID: [id number] Report ID: [id number] MTDD
--- NOTE | 2019-11-22 08:49 | DS ---
Date of Discharge: 11/21/2019 The patient is afebrile. She is complaining of no pain. The right nipple-areolar complex is pink. We will switch over to Silvadene cream twice a day. The left nipple-areolar complex part is missing from the dissection, but area is all clean. There are no signs of infection, pus, or drainage, and s he is nontender. CAT scan was done today, which reveals no abscesses or masses or fluid collections. Only finding was air probably from the surgery yesterday and that is not to be expected. We will k eep in hospital for the white count of 16,000 with a left shift. She is getting some IV iron, I will plan checking her tomorrow. We will do dressing changes twice a day. SLADE/MANUEL Voice ID: [id number] Report ID: [id number]
[2019-11-23 22:18] LABS: Alpha-1-Globulins 0.4 g/dL (0.2-0.3); INTERPRETATION REPORT
[2019-11-24 15:31] LABS: HBsAG Nonreactive (Nonreactive)
== END 2019-11-21 10:05 | disposition home or self-care (01) | DRG 855 ==
LOC: ER 14:52 → ERHOLD 18:30 → 2ND 19:39
PROVIDERS: ADMIT Family Medicine; ATTEND Internal Medicine
PROC: 0JB60ZZ Excision of Chest Subcutaneous Tissue and Fascia, Open Approach (ICD-10-PCS; principal; 2019-11-19 14:00)
DX: A41.9 Sepsis, unspecified organism (principal); F41.9 Anxiety disorder, unspecified; E03.9 Hypothyroidism, unspecified; I34.1 Nonrheumatic mitral (valve) prolapse; N61.0 Mastitis without abscess; D50.9 Iron deficiency anemia, unspecified; D47.3 Essential (hemorrhagic) thrombocythemia; I99.8 Other disorder of circulatory system; D64.9 Anemia, unspecified; T21.21XA Burn of second degree of chest wall, initial encounter; R00.0 Tachycardia, unspecified; Z90.710 Acquired absence of both cervix and uterus; Z90.49 Acquired absence of other specified parts of digestive tract; Z98.51 Tubal ligation status; Z79.899 Other long term (current) drug therapy; Z20.828 Contact with and (suspected) exposure to other viral communicable diseases
CPT/HCPCS: 36415; 71260; 76641; 80048; 80074; 80076; 80202; 82550; 82607; 82728; 83540; 83605; 83615; 84145; 84165; 84439; 84443; 84466; 85014; 85018; 85025; 85044; 85610; 85652; 85730; 86140; 87040; 93005; 96365; 96366; 96367; 96375; 99285; J0692; J1100; J2250; J2405; J2704; J3370; J7030; J7050; Q9967; U0003

== ENCOUNTER 2019-11-24 23:06 | Emergency (ER) | payer OTHER ==
[2019-11-25 00:31] LABS: Absolute Lymphocytes (CBC) 3.6 K/uL (0.7-4.9); Basophils % 0.9 % (0-1.3); Hematocrit 26.3 % (36.0-45.0); Lymphocytes % 29.4 % (15.3-44.8); MPV 7.2 fL (7.6-11.3); RBC Red Blood Cell Count 2.92 M/uL (3.86-4.86)
[2019-11-25 00:33] LABS: Protime INR 1.03
[2019-11-25 00:39] LABS: Potassium 3.9 mmol/L (3.5-5.1)
[2019-11-25 01:13] LABS: Blood Morphology Comment NOTED (NOT SEEN); Platelet Estimate INCR; Polychromasia 1+; White Blood Cell Scan OK (OK)
--- NOTE | 2019-11-25 01:22 | EDPHYS ---
Physician Documentation [facility] Name: Vee Sierra Age: 53 yrs Sex: Female : 1965 Arrival Date: 11/24/2019 Time: 23:08 Bed 8 Private MD: Colby Do ED Physician Steven Blackburn HPI: 11/24 00:42 This 53 yrs old Female presents to ER via Wheelchair with complaints of Wound mh7 Check. 00:43 Patient presents to ED for recheck of: Bleeding surgical wound. The affected area is on mh7 the left breast. Previous treatment: Previous recheck: the patient's last recheck was 1 day(s) ago. Progress: The patient reports increased bleeding today. The patient has been recently seen by a physician: a plastic surgeon. Patient states that she had bleeding from surgical wound of left breast tonight while changing the packing.. 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 - Social history:: Smoking status: Patient denies any tobacco usage or history of. ROS: 11/24 00:43 Constitutional: Negative for fever, chills, and weight loss, Eyes: Negative for injury, mh7 pain, redness, and discharge, ENT: Negative for injury, pain, and discharge, Neck: Negative for injury, pain, and swelling, Cardiovascular: Negative for chest pain, palpitations, and edema, Respiratory: Negative for shortness of breath, cough, wheezing, and pleuritic chest pain, Abdomen/GI: Negative for abdominal pain, nausea, vomiting, diarrhea, and constipation, Back: Negative for injury and pain, : Negative for injury, bleeding, discharge, and swelling, MS/Extremity: Negative for injury and deformity, Neuro: Negative for headache, weakness, numbness, tingling, and seizure, Psych: Negative for depression, anxiety, suicide ideation, homicidal ideation, and hallucinations, Allergy/Immunology: Negative for hives, rash, and allergies, Endocrine: Negative for neck swelling, polydipsia, polyuria, polyphagia, and marked weight changes, Hematologic/Lymphatic: Negative for swollen nodes, abnormal bleeding, and unusual bruising. Exam: 00:43 Constitutional: This is a well developed, well nourished patient who is awake, alert, mh7 and in no acute distress. Head/Face: Normocephalic, atraumatic. Eyes: Pupils equal round and reactive to light, extra-ocular motions intact. Lids and lashes normal. Conjunctiva and sclera are non-icteric and not injected. Cornea within normal limits. Periorbital areas with no swelling, redness, or edema. Neck: Trachea midline, no thyromegaly or masses palpated, and no cervical lymphadenopathy. Supple, full range of motion without nuchal rigidity, or vertebral point tenderness. No Meningismus. 00:43 Cardiovascular: Regular rate and rhythm with a normal S1 and S2. No gallops, murmurs, or rubs. Normal PMI, no JVD. No pulse deficits. Respiratory: Lungs have equal breath sounds bilaterally, clear to auscultation and percussion. No rales, rhonchi or wheezes noted. No increased work of breathing, no retractions or nasal flaring. Abdomen/GI: Soft, non-tender, with normal bowel sounds. No distension or tympany. No guarding or rebound. No evidence of tenderness throughout. Back: No spinal tenderness. No costovertebral tenderness. Full range of motion. MS/ Extremity: Pulses equal, no cyanosis. Neurovascular intact. Full, normal range of motion. Neuro: Awake and alert, GCS 15, oriented to person, place, time, and situation. Cranial nerves II-XII grossly intact. Motor strength 5/5 in all extremities. Sensory grossly intact. Cerebellar exam normal. Normal gait. Psych: Awake, alert, with orientation to person, place and time. Behavior, mood, and affect are within normal limits. 00:43 Chest/axilla: Inspection: left breast surgical wound, Palpation: is normal, Axilla: are normal, Breasts: mild bleeding at surgical site of left nipple area, Lymph nodes: lymphadenopathy is not appreciated. Vital Signs: 11/23 23:34 BP 143 / 69; Pulse 88; Resp 16; Temp 98.5(O); Pulse Ox 97% ; Pain 0/10; mt2 11/24 00:48 BP 109 / 79; Pulse 82; Resp 16; Pulse Ox 99% ; Pain 0/10; mt2 MDM: 11/23 23:52 Patient medically screened. health system 11/24 01:17 Differential diagnosis: cellulitis, Wound Infection, Post operative Bleeding. Data health system reviewed: vital signs, nurses notes, old medical records, lab test result(s), CBC, electrolytes. Data interpreted: Pulse oximetry: on room air is 99 %. Interpretation: normal. Counseling: I had a detailed discussion with the patient and/or guardian regarding: the historical points, exam findings, and any diagnostic results supporting the discharge/admit diagnosis, lab results, the need for outpatient follow up, a plastic surgeon. Response to treatment: the patient's symptoms have resolved after treatment, the patient's blood pressure is in an acceptable range, mental status has returned to baseline, the patient no longer shows bradycardia, the patient is not short of breath, the patient is not tachycardic, the patient's pain is gone, the patient's temperature has normalized. Physician consultation: Praveen Tovar MD and will see patient in office, tomorrow. 11/23 23:53 Order name: CBC with Diff health system 11/23 23:53 Order name: Basic Metabolic Panel; Complete Time: 01: health system 11/23 23:53 Order name: Protime (+inr); Complete Time: : health system 11/23 23:53 Order name: Ptt, Activated; Complete Time: 01: health system 11/24 00:43 Order name: CBC Smear Scan EDMS Administered Medications: No medications were administered Disposition: 11/25/19 01:20 Discharged to Home. Impression: Post Operative Wound Bleeding . - Condition is Stable. - Discharge Instructions: Wound Check, Wound Care. - Medication Reconciliation Form, Thank You Letter, Antibiotic Education, Prescription Opioid Use form. - Follow up: Praveen Tovar MD; When: Tomorrow; Reason: Worsening of condition, Recheck today's complaints, Continuance of care, Re-evaluation by your physician. - Problem is an ongoing problem. - Symptoms have improved. Signatures: Dispatcher [employer] EDMS Jorge Gandara RN RN Steven Blackburn MD MD health system Tiffanie Liao RN RN mt2 Corrections: (The following items were deleted from the chart) 01:27 01:20 11/25/2019 01:20 Discharged to Home. Impression: Post Operative Wound Bleeding . mt2 Condition is Stable. Forms are Medication Reconciliation Form, Thank You Letter, Antibiotic Education, Prescription Opioid Use. Follow up: Praveen Tovar; When: Tomorrow; Reason: Worsening of condition, Recheck today's complaints, Continuance of care, Re-evaluation by your physician. Problem is an ongoing problem. Symptoms have improved. mh7
--- NOTE | 2019-11-25 01:22 | ER ---
Nurse's Notes [facility] Name: Vee Sierra Age: 53 yrs Sex: Female : 1965 Arrival Date: 11/24/2019 Time: 23:08 Bed 8 Private MD: Colby Do Diagnosis: Post Operative Wound Bleeding Presentation: 11/23 23:20 Chief complaint: Patient states: I was just in the hospital and discharged to home, My sg and I were changing the drainage from my incision site when we changed the dressing and removed the packing, there was bleeding that we couldn't get to stop at home. Coronavirus screen: Client denies travel out of the [place] in the last 14 days. At this time, the client does not indicate any symptoms associated with coronavirus-19. Ebola Screen: Patient negative for fever greater than or equal to 101.5 degrees Fahrenheit, and additional compatible Ebola Virus Disease symptoms Patient denies exposure to infectious person. Patient denies travel to an Ebola-affected area in the 21 days before illness onset. No symptoms or risks identified at this time. Initial Sepsis Screen: Does the patient meet any 2 criteria? No. Patient's initial sepsis screen is negative. Does the patient have a suspected source of infection? Yes: Skin breakdown/wound. Risk Assessment: Do you want to hurt yourself or someone else? Patient reports no desire to harm self or others. Onset of symptoms was November 24, 2019. Care prior to arrival: None. Transition of care: patient was not received from another setting of care. 23:20 Acuity: MARGOT 4 sg 23:20 Method Of Arrival: Wheelchair sg Triage Assessment: 23:36 General: Appears uncomfortable, Behavior is cooperative. Pain: Denies pain. 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 - Social history:: Smoking status: Patient denies any tobacco usage or history of. Screenin:35 Abuse screen: Denies threats or abuse. Nutritional screening: No deficits noted. mt2 Tuberculosis screening: No symptoms or risk factors identified. Fall Risk None identified. Assessment: 09/10 00:23 General: Appears in no apparent distress. comfortable, Behavior is calm, cooperative. mg2 Pain: Denies pain. Neuro: Level of Consciousness is awake, alert, obeys commands, Oriented to person, place, time, situation. Cardiovascular: Capillary refill < 3 seconds Patient's skin is warm and dry. Respiratory: Airway is patent Trachea midline Respiratory effort is even, unlabored, Respiratory pattern is regular, symmetrical. GI: No signs and/or symptoms were reported involving the gastrointestinal system. : No deficits noted. EENT: No signs and/or symptoms were reported regarding the EENT system. Derm: Wound noted left breast Wound is post op wound- bleeding noted. Musculoskeletal: Circulation, motion, and sensation intact. Capillary refill < 3 seconds. Vital Signs: 11/23 23:34 BP 143 / 69; Pulse 88; Resp 16; Temp 98.5(O); Pulse Ox 97% ; Pain 0/10; mt2 11/24 00:48 BP 109 / 79; Pulse 82; Resp 16; Pulse Ox 99% ; Pain 0/10; mt2 ED Course: 11/23 23:08 Patient arrived in ED. am2 23:08 Colby Do MD is Private Physician. am2 23:13 Steven Blackburn MD is Attending Physician. mh7 23:15 Tiffanie Liao, CHRISTA is Primary Nurse. mt2 23:20 Arm band placed on. sg 23:34 Triage completed. sg 23:35 Placed in gown. Bed in low position. Call light in reach. Side rails up X 1. mt2 23:35 Wound care: located on left breast was dressed with 4X4s. mt2 23:37 No provider procedures requiring assistance completed. Patient did not have IV access mg2 during this emergency room visit. 11/24 00:42 Notified ED physician of a critical lab result(s). plt [id number]. sg 00:49 Dressings: ABD pad X 2; left breast 4X4s. Wound care: was dressed with. mt2 01:19 Praveen Tovar MD is Referral Physician. 7 Administered Medications: No medications were administered Outcome: 01:20 Discharge ordered by . 7 01:26 Discharged to home ambulatory. mt2 01:26 Condition: good 01:26 Discharge instructions given to patient, Instructed on discharge instructions, follow up and referral plans. wound care. 01:27 Patient left the ED. mt2 Signatures: Jorge Gandara, RN RN Maki Fernando formerly [facility] Suleiman Acuña RN RN [facility] Steven Blackburn MD MD [facility] Tiffanie Liao RN RN mt2 Corrections: (The following items were deleted from the chart) 11/23 23:36 23:34 BP 143 / 69; Pulse 88bpm; Resp 16bpm; Pulse Ox 97%; Pain 0/10; mt2 mt2
[2019-11-25 01:45] VITALS: TEMP 98.5
[2019-11-25 01:46] VITALS: BP 109/79; O2SAT 99
== END 2019-11-25 01:27 | disposition home or self-care (01) ==
LOC: ER 23:06
DX: L76.22 Postprocedural hemorrhage of skin and subcutaneous tissue following other procedure (principal); Z98.82 Breast implant status
CPT/HCPCS: 36415; 80048; 85025; 85610; 85730; 99283